=== PATIENT | female | born 1975 ===

== ENCOUNTER 2025-02-07 13:19 | Outpatient (CLI) | payer OTHER, SELFPAY ==
--- NOTE | 2025-02-07 13:55 | NEURO_ITS ---
Impression: # Non-diabetic complains of lower back pain. History of Herniated Disc. ? # Normal Needle/ EMG exam. ? # Clinical correlation recommended. Nerve Conduction Studies ?Stim Site NR Peak (ms) P-T Amp (?V) Site1 Site2 Delta-P (ms) Dist (cm) Tommy (m/s) Left Sup Fibular Anti Sensory (Ant Lat Mall) 14 cm ? 3.1 5.2 14 cm Ant Lat Mall 2.3 16.0 52 Right Sup Fibular Anti Sensory (Ant Lat Mall) 14 cm ? 3.3 4.4 14 cm Ant Lat Mall 3.3 16.0 48 Left Sural Anti Sensory (Lat Mall) Calf ? 3.1 9.9 Calf Lat Mall 3.1 16.0 52 Right Sural Anti Sensory (Lat Mall) Calf ? 3.7 11.2 Calf Lat Mall 2.5 16.0 45 ?Stim Site NR Onset (ms) O-P Amp (mV) Site1 Site2 Delta-0 (ms) Dist (cm) Tommy (m/s) Left Peroneal Motor (Vastus Med) Ankle ? 3.2 3.9 Popit Ankle 6.8 38.0 56 Popit ? 10.0 2.7 Right Peroneal Motor (Vastus Med) Ankle ? 3.4 1.1 Popit Ankle 6.8 38.0 56 Popit ? 10.2 0.8 Left Tibial Motor (Abd Noriega Brev) Ankle ? 4.1 4.8 Knee Ankle 8.4 40.0 48 Knee ? 12.5 2.9 Right Tibial Motor (Abd Noriega Brev) Ankle ? 4.0 2.9 Knee Ankle 7.7 36.0 47 Knee ? 11.7 2.8 F Wave Studies ?NR F-Lat (ms) L-R F-Lat (ms) Left Peroneal (Mrkrs) (EDB) ? 43.64 0.60 Right Peroneal (Mrkrs) (EDB) ? 43.04 0.60 Left Tibial (Mrkrs) (Abd Hallucis) ? 48.01 1.21 Right Tibial (Mrkrs) (Abd Hallucis) ? 49.22 1.21 Electromyography ?Side Muscle Nerve Root Ins Act Fibs Amp Dur Recrt Comment Right AntTibialis Dp Br Fibular L4-5 Nml Nml Nml Nml Nml Right Gastroc Tibial S1-2 Nml Nml Nml Nml Nml Right Fibularis Long Sup Br Fibular L5-S1 Nml Nml Nml Nml Nml Right Flex Dig Long Tibial L5-S2 Nml Nml Nml Nml Nml Right Ext Dig Brev Dp Br Fibular L5, S1 Nml Nml Nml Nml Nml Right QuadratusFem QuadFemoris L4-5, S1 Nml Nml Nml Nml Nml Left AntTibialis Dp Br Fibular L4-5 Nml Nml Nml Nml Nml Left Gastroc Tibial S1-2 Nml Nml Nml Nml Nml Left Fibularis Long Sup Br Fibular L5-S1 Nml Nml Nml Nml Nml Left Flex Dig Long Tibial L5-S2 Nml Nml Nml Nml Nml Left Ext Dig Brev Dp Br Fibular L5, S1 Nml Nml Nml Nml Nml Left QuadratusFem QuadFemoris L4-5, S1 Nml Nml Nml Nml Nml
== END 2025-02-07 13:20 | disposition home or self-care (01) ==
LOC: ANHNEURO 13:21
PROVIDERS: Visit Provider Internal Medicine
DX: M54.50 Low back pain, unspecified (principal)
CPT/HCPCS: 95886; 95910